=== PATIENT | male | born 1950 ===

== ENCOUNTER → 2018-12-04 22:33 | Outpatient (ROUT) | payer MEDICARE, SELFPAY ==
[2018-12-04 23:28] LABS: Carbon Dioxide 28 mmol/L (22-32); Chloride 91 mmol/L (98-107); HEMOLYSIS < 15 (0-50); Potassium 4.7 mmol/L (3.4-5.1); Sodium 129 mmol/L (137-145); Uric Acid 4.6 mg/dL (3.5-8.5)
[2018-12-04 23:47] LABS: Rheumatoid Factor < 8.6 IU/mL (<12.0)
[2018-12-05 00:15] LABS: Erythrocyte Sedimentation Rate 4 MM/HR (0-15)
[2018-12-05 00:44] LABS: Add Manual Diff / Slide Review NO; Basophils Absolute Auto 100 /uL (0-100); Basophils Percent Auto 0.6 % (0-2); Eosinophils Absolute Auto 300 /uL (0-450); Eosinophils Percent Auto 3.4 % (2-4); Hematocrit 41.5 % (41-53); Hemoglobin 14.6 g/dL (13.5-17.5); Lymphocytes Absolute Auto 1400 /uL (1100-4500); Lymphocytes Percent Auto 14.5 % (25-40); Mean Corpuscular HGB Conc 35.2 % (30-36); Mean Corpuscular Volume 96.5 fL (80-100); Monocytes Absolute Auto 600 /uL (0-900); Monocytes Percent Auto 6.5 % (3-14); Neutrophils Absolute Auto 7100 /uL (1500-7000); Platelet Count 367 X10^3/uL (150-400); Red Cell Distribution Width 13.3 % (11.6-14.8); White Blood Cell Count 9.5 X10^3/uL (4.5-11.0)
== END ==
PROVIDERS: Visit Provider Family Medicine
DX: M13.0 Polyarthritis, unspecified (principal); R53.1 Weakness; M10.00 Idiopathic gout, unspecified site; D50.9 Iron deficiency anemia, unspecified; M75.50 Bursitis of unspecified shoulder
CPT/HCPCS: 36415; 80051; 84550; 85025; 85651; 86430